=== PATIENT | male | born 1965 | race Caucasian/White ===

== ENCOUNTER 2017-01-23 23:44 | Observation (INO) | payer BC ==
[2017-01-24] MEDS ORDERED: Sodium Chloride 0.9% 1000 ML 1,000 ML IV STA (00:27)
[2017-01-24] MEDS ORDERED: PROTONIX 40 MG IV IV ONE ×2 (00:27→00:37)
[2017-01-24] MEDS ORDERED: Zofran 4 MG/2 ML VIAL IV ONE ×2 (00:27→03:14)
--- NOTE | 2017-01-24 00:33 | ERPHSYRPT ---
- History of Present Illness Time Seen by Provider: 01/23/17 23:56 Historian: patient Exam Limitations: clinical condition Patient Subjective Stated Complaint: PT STS LOWER ABD PAIN THAT STARTED EARLIER. DENIES ANY RECENT HEAVY LIFTING OR TRAUMA. DENIES N/V/D. STS PAIN RADIATES TO GROIN. DESCRIBES CONSTANT THAT WAXES AND WANES. STS LAST BM TODAY. DENIES CHANGE IN URINATION. STS URINE MORE YELLOW THAN NORMAL. Triage Nursing Assessment: PT ALERT, ORIENTED, ANSWERS ALL QUESTIONS APPROPRIATELY. SKIN P/W/D, RESPS NON-LABORED. LUNG SOUNDS CTA BILAT NON- LABORED. HEART RRR, NO MURMUR NOTED OR GALLOP NOTED. ABD SOFT, TENDER WITH PALPATION SUPRAPUBIC AREA. + BOWEL SOUNDS NOTED. Physician History: PATIENT WITH HISTORY OF HYPERTENSION COMPLAINS OF ABDOMINAL PAIN SINCE 3:30PM THIS AFTERNOON. STATES PAIN IS CONSTANT, DENIES DIARRHEA, NAUSEA, EMESIS, FEVER OR URINARY SYMPTOMS. Timing/Duration: today Activities at Onset: none Quality: cramping Abdominal Pain Onset Location: generalized abdomen Severity of Pain-Max: moderate Severity of Pain-Current: moderate Modifying Factors: Improves With: nothing Associated Symptoms: denies symptoms Previous symptoms: no prior history Allergies/Adverse Reactions: No Known Drug Allergies Allergy (Verified 01/23/17 23:54) Hx Influenza Vaccination/Date Given: No Hx Pneumococcal Vaccination/Date Given: No Immunizations Up to Date: Yes - Review of Systems Constitutional: No Fever, No Chills Eyes: No Symptoms Ears, Nose, & Throat: No Symptoms Respiratory: No Cough, No Dyspnea Cardiac: No Chest Pain, No Edema, No Syncope Abdominal/Gastrointestinal: Abdominal Pain, No Nausea, No Vomiting, No Diarrhea Genitourinary Symptoms: No Symptoms, No Dysuria Musculoskeletal: No Symptoms, No Back Pain, No Neck Pain Skin: No Symptoms, No Rash Neurological: No Dizziness, No Focal Weakness, No Sensory Changes Psychological: No Symptoms Endocrine: No Symptoms All Other Systems: Reviewed and Negative - Past Medical History Pertinent Past Medical History: Yes Cardiac History: Hypertension - Past Surgical History Past Surgical History: No - Social History Smoking Status: Never smoker Drug Use: none Patient Lives Alone: No - Nursing Vital Signs Nursing Vital Signs: Initial Vital Signs Temperature 99.5 F Temperature Source Oral Pulse Rate 84 Respiratory Rate 16 Blood Pressure [] 138/103 Pain Intensity 7 - Physical Exam General Appearance: no apparent distress, alert Eye Exam: PERRL/EOMI, eyes nml inspection Ears, Nose, Throat Exam: normal ENT inspection, pharynx normal, moist mucous membranes Neck Exam: normal inspection, non-tender, supple, full range of motion Respiratory Exam: normal breath sounds, lungs clear, No respiratory distress Cardiovascular Exam: regular rate/rhythm, normal heart sounds, normal peripheral pulses Gastrointestinal/Abdomen Exam: soft, normal bowel sounds, tenderness (THERE IS MINIMAL PERIUMBILICAL TENDERNESS), No mass Back Exam: normal inspection, normal range of motion, No CVA tenderness, No vertebral tenderness Extremity Exam: normal inspection, normal range of motion, pelvis stable Neurologic Exam: alert, oriented x 3, cooperative, normal mood/affect, nml cerebellar function, sensation nml, No motor deficits Skin Exam: normal color, warm, dry SpO2: 97 Oxygen Delivery: Room Air - CT Exams Abdomen/Pelvis CT Interpretation: Tele-radiologist Report (THERE IS THICKENING OF THE WALL OF THE SIGMOID COLON WITH SURROUNDING FLUID STRANDING AND HYPEREMIA C/W ACUTE SIGMOID DIVERTICULITIS) Ordered Tests: Active Orders 24 hr Category Date Time Status Admission/Status Order ROUTINE Care 01/24/17 03:22 Active Code Status Order ROUTINE Care 01/24/17 03:22 Active IV Care Q6H Care 01/24/17 03:22 Active IV Insertion STAT Care 01/24/17 00:27 Active Clear Liquid Diet 01/24/17 Breakfast Completed ABDOMEN AND PELVIS W CONTRAST [CT] Stat Exams 01/24/17 00:27 Taken AMYLASE Stat Lab 01/24/17 00:20 Completed BLOOD CULTURE Stat Lab 01/24/17 02:36 Ordered CBC W DIFF Stat Lab 01/24/17 00:20 Completed CMP Stat Lab 01/24/17 00:20 Completed LIPASE Stat Lab 01/24/17 00:20 Completed UA W/RFX UR CULTURE Stat Lab 01/24/17 00:27 Completed Pulse Oximetry CONTINUOUS RT 01/24/17 03:23 Active Transfer Order Routine Transfer 01/24/17 03:21 Ordered Medication Summary Generic Name Dose Route Start Last Admin Trade Name Freq PRN Reason Stop Dose Admin Acetaminophen 650 mg 01/24/17 03:22 Tylenol 325 Mg PO 02/23/17 03:21 Q4H PRN PRN PAIN AND/OR FEVER Levofloxacin/Dextrose 500 mg in 100 mls @ 100 mls/hr 01/24/17 02:42 01/24/17 03:01 Levofloxacin 500mg/100ml D5w IV 01/24/17 03:41 100 mls/hr STAT STA Administration Levofloxacin/Dextrose 500 mg in 100 mls @ 100 mls/hr 01/24/17 10:00 Levofloxacin 500mg/100ml D5w IV 02/23/17 09:59 Q24H10 SUSSY Metronidazole 500 mg in 100 mls @ 100 mls/hr 01/24/17 06:00 Flagyl 500 Mg Ivpb IV 02/23/17 05:59 Q6HT SUSSY Sodium Chloride 1,000 mls @ 100 mls/hr 01/24/17 03:30 Sodium Chloride 0.9% 1000 Ml IV 02/23/17 03:29 .Q10H SUSSY Ondansetron HCl 4 mg 01/24/17 03:22 Zofran 4 Mg/2 Ml Vial IV 02/23/17 03:21 Q6H PRN PRN NAUSEA/VOMITING Pantoprazole Sodium 40 mg 01/24/17 10:00 Protonix 40 Mg Iv IV 02/23/17 09:59 Q24H10 SUSSY Discontinued Medications Generic Name Dose Route Start Last Admin Trade Name Freq PRN Reason Stop Dose Admin Hydromorphone HCl 1 mg 01/24/17 03:14 01/24/17 03:20 Hydromorphone 1 Mg/Ml Ampule IV 01/24/17 03:15 1 mg STAT ONE Administration Hydromorphone HCl Confirm 01/24/17 03:19 Hydromorphone 1 Mg/Ml Ampule Administered 01/24/17 03:20 Dose 1 mg .ROUTE .STK-MED ONE Sodium Chloride 1,000 mls @ 999 mls/hr 01/24/17 00:27 01/24/17 00:40 Sodium Chloride 0.9% 1000 Ml IV 01/24/17 01:27 999 mls/hr .Q1H1M STA Administration Sodium Chloride Confirm 01/24/17 00:37 Sodium Chloride 0.9% 1000 Ml Administered 01/24/17 00:38 Dose 1,000 mls @ ud .ROUTE .STK-MED ONE Metronidazole 500 mg in 100 mls @ 200 mls/hr 01/24/17 02:42 01/24/17 03:01 Flagyl 500 Mg Ivpb IV 01/24/17 03:11 200 mls/hr STAT STA Administration Metronidazole Confirm 01/24/17 02:58 Flagyl 500 Mg Ivpb Administered 01/24/17 02:59 Dose 500 mg in 100 mls @ ud IV .STK-MED ONE Levofloxacin/Dextrose Confirm 01/24/17 02:58 Levofloxacin 500mg/100ml D5w Administered 01/24/17 02:59 Dose 500 mg in 100 mls @ ud IV .STK-MED ONE Ondansetron HCl 4 mg 01/24/17 00:27 01/24/17 00:40 Zofran 4 Mg/2 Ml Vial IV 01/24/17 00:28 4 mg STAT ONE Administration Ondansetron HCl Confirm 01/24/17 00:37 Zofran 4 Mg/2 Ml Vial Administered 01/24/17 00:38 Dose 4 mg .ROUTE .STK-MED ONE Ondansetron HCl 4 mg 01/24/17 03:14 01/24/17 03:20 Zofran 4 Mg/2 Ml Vial IV 01/24/17 03:15 4 mg STAT ONE Administration Ondansetron HCl Confirm 01/24/17 03:19 Zofran 4 Mg/2 Ml Vial Administered 01/24/17 03:20 Dose 4 mg .ROUTE .STK-MED ONE Pantoprazole Sodium 40 mg 01/24/17 00:27 01/24/17 00:40 Protonix 40 Mg Iv IV 01/24/17 00:28 40 mg STAT ONE Administration Pantoprazole Sodium Confirm 01/24/17 00:37 Protonix 40 Mg Iv Administered 01/24/17 00:38 Dose 40 mg IV .STK-MED ONE Lab/Rad Data: Laboratory Result Diagrams 01/24/17 00:20 01/24/17 00:20 Laboratory Results 01/24/17 01/24/17 01/24/17 Range/Units 00:27 00:20 00:20 WBC 12.3 H (4.0-10.5) K/mm3 RBC 5.10 (4.1-5.6) M/mm3 Hgb 15.3 (12.5-18.0) gm/dl Hct 45.6 (42-50) % MCV 89.4 (78-100) fl MCH 30.0 (26-32) pg MCHC 33.6 (32-36) g/dl RDW 12.5 (11.5-14.0) % Plt Count 267 (150-450) K/mm3 MPV 10.4 H (6-9.5) fl Gran % 72.8 H (36.0-66.0) % Lymphocytes % 14.9 L (24.0-44.0) % Monocytes % 10.4 (0.0-12.0) % Eosinophils % 1.5 (0.00-5.0) % Basophils % 0.4 (0.0-0.4) % Basophils # 0.05 (0-0.4) Sodium 139 (136-145) mEq/L Potassium 3.7 (3.5-5.1) mEq/L Chloride 104 (98-107) mEq/L Carbon Dioxide 27.1 (21-32) mEq/L Anion Gap 11.4 (5-15) MEQ/L BUN 8 L (9-20) mg/dL Creatinine 1.24 (0.55-1.30) mg/dl Estimated GFR > 60 ML/MIN Glucose 115 H (70-110) MG/DL Calcium 9.1 (8.5-10.1) mg/dL Total Bilirubin 0.70 (0.2-1.0) mg/dL AST 14 L (15-37) U/L ALT 17 (12-78) U/L Alkaline Phosphatase 55 (46-116) U/L Serum Total Protein 7.3 (6.4-8.2) gm/dL Albumin 3.7 (3.4-5.0) g/dL Amylase 51 (25-115) U/L Lipase 149 (73-393) U/L Ur Collection Type CCMS Urine Color YELLOW (YELLOW) Urine Appearance CLEAR (CLEAR) Urine pH 5.0 (5-6) Ur Specific [place] 1.030 (1.005-1.025) Urine Protein NEGATIVE (Negative) Urine Ketones NEGATIVE (NEGATIVE) Urine Blood NEGATIVE (0-5) Ryan/ul Urine Nitrite NEGATIVE (NEGATIVE) Urine Bilirubin NEGATIVE (NEGATIVE) Urine Urobilinogen NORMAL (0-1) mg/dL Ur Leukocyte Esterase NEGATIVE (NEGATIVE) Urine Glucose NEGATIVE (NEGATIVE) mg/dL Specimen Received 01/24/17 0050 - Progress Progress Note: 01/24/17 03:20 AFTER 2 SETS OF BLOOD CULTURES, IV LEVAQUIN 500MG AND FLAGYL 500MG IVPB Discussed with : Pedro (DISCUSSED WITH DR OSPINA AT 0315 FOR ADMISSION) - Departure Time of Disposition: 03:30 Departure Disposition: Observation Clinical Impression: ACUTE SIGMOID DIVERTICULITIS Condition: Stable Critical Care Time: No Referrals: BERNADETTE OSPINA MD [Primary Care Provider] -
[2017-01-24] MEDS ORDERED: Sodium Chloride 0.9% 1000 ML 1,000 ML ONE (00:37)
[2017-01-24] MEDS ORDERED: Zofran 4 MG/2 ML VIAL ONE ×2 (00:37→03:19)
[2017-01-24 00:39] LABS: BASOPHIL % 0.4 % (0.0-0.4); Eosinophil % 1.5 % (0.00-5.0); Granulocytes % 72.8 % (36.0-66.0); Lymphocytes % 14.9 % (24.0-44.0); Mean Cell Volume 89.4 fl (78-100); Mean Platelet Volume 10.4 fl (6-9.5); Monocytes % 10.4 % (0.0-12.0); Platelet Count 267 K/mm3 (150-450); Red Cell Distribution Width 12.5 % (11.5-14.0); White Blood Count 12.3 K/mm3 (4.0-10.5)
[2017-01-24 00:47] LABS: ALBUMIN 3.7 g/dL (3.4-5.0); ALKALINE PHOSPHATASE 55 U/L (46-116); ANION GAP 11.4 MEQ/L (5-15); BLOOD UREA NITROGEN 8 mg/dL (9-20); CHLORIDE 104 mEq/L (98-107); Carbon Dioxide 27.1 mEq/L (21-32); Glucose 115 MG/DL (70-110); LIPASE 149 U/L (73-393); Potassium 3.7 mEq/L (3.5-5.1); SGOT/AST 14 U/L (15-37); SGPT/ALT 17 U/L (12-78); SODIUM 139 mEq/L (136-145); Total Protein 7.3 gm/dL (6.4-8.2)
[2017-01-24 00:52] LABS: ADD URINE CULTURE? NO (NO); Bilirubin NEGATIVE (NEGATIVE); Blood NEGATIVE Ery/ul (0-5); COMPLETE URINE MICROSCOPIC? NO; Collection Type CCMS; Glucose NEGATIVE (NEGATIVE); Leukocyte Esterase NEGATIVE (NEGATIVE)
[2017-01-24] MEDS ORDERED: Levofloxacin 500MG/100ML D5W 500 MG/100 ML BAG IV STA (02:42)
[2017-01-24] MEDS ORDERED: FLAGYL 500 MG IVPB 500 MG/100 ML BAG IV STA (02:42)
[2017-01-24] MEDS ORDERED: Levofloxacin 500MG/100ML D5W 500 MG/100 ML BAG IV ONE (02:58)
[2017-01-24] MEDS ORDERED: FLAGYL 500 MG IVPB 500 MG/100 ML BAG IV ONE (02:58)
[2017-01-24] MEDS ORDERED: Hydromorphone 1 mg/ml Ampule IV ONE (03:14)
[2017-01-24] MEDS ORDERED: Hydromorphone 1 mg/ml Ampule ONE (03:19)
[2017-01-24] MEDS ORDERED: TYLENOL 325 MG PO PRN (03:22)
[2017-01-24] MEDS ORDERED: Zofran 4 MG/2 ML VIAL IV PRN (03:22)
[2017-01-24] MEDS: Sodium Chloride 0.9% 1000 ML 1,000 ML IV SCH ×2 (05:15→18:02)
[2017-01-24] MEDS: FLAGYL 500 MG IVPB 500 MG/100 ML BAG IV SCH ×4 (07:37→23:45)
--- NOTE | 2017-01-24 08:17 | PCM.HP ---
History of Present Illness - Chief Complaint Chief Complaint: c/o of left lower abdominal pain for 1-2 days History of Present Illness: is a 51 year old male.came to ER with c/o left lower quadrant abdominal pain for 1-2 days duration - Review of Systems Constitutional: No Fever, No Chills Eyes: No Symptoms Ears, Nose, & Throat: No Symptoms Respiratory: No Cough, No Short Of Breath Cardiac: No Chest Pain, No Edema, No Syncope Abdominal/Gastrointestinal: Abdominal Pain, Diarrhea, Appetite Changes, No Nausea, No Vomiting Genitourinary Symptoms: No Dysuria Musculoskeletal: No Back Pain, No Neck Pain Skin: No Rash Neurological: No Dizziness, No Focal Weakness, No Sensory Changes Psychological: No Symptoms Endocrine: No Symptoms Hematologic/Lymphatic: No Symptoms Immunological/Allergic: No Symptoms Medications & Allergies Home Medications: Home Medication List Enalapril Maleate 5 mg [Vasotec 5 MG] 5 mg PO DAILY #30 tablet 08/06/12 [Rx] Allergies/Adverse Reactions: Allergies Allergy/AdvReac Type Severity Reaction Status Date / Time No Known Drug Allergies Allergy Verified 01/23/17 23:54 - Past Medical History Past Medical History: Yes Neurological History: TIA ENT History: No Pertinent History Cardiac History: Hypertension, Myocardial Infarction (ME) Respiratory History: No Pertinent History Endocrine Medical History: No Pertinent History Musculoskelatal History: No Pertinent History GI Medical History: No Pertinent History History: No Pertinent History Pyscho-Social History: No Pertinent History Comment: mild ME over 10 years ago, slight stroke many years ago - Past Surgical History Past Surgical History: No - Social History Smoking Status: Never smoker Exposure to second hand smoke: No Alcohol: Occasionally Drug Use: none - Physical Exam Vital Signs: Vital Signs - 24 hr Temp Pulse Resp BP Pulse Ox 01/24/17 07:39 98.5 F 71 18 127/71 94 L 01/24/17 04:27 98.1 F 81 18 138/95 93 L 01/24/17 03:33 97 01/24/17 01:19 84 16 138/103 97 01/23/17 23:46 99.5 F 76 16 156/110 97 General Appearance: no apparent distress, alert Neurologic Exam: alert, oriented x 3, cooperative, normal mood/affect, nml cerebellar function, nml station & gait, sensation nml, No motor deficits Eye Exam: PERRL/EOMI, eyes nml inspection Ears, Nose, Throat Exam: normal ENT inspection, TMs normal, pharynx normal, moist mucous membranes Neck Exam: normal inspection, non-tender, supple, full range of motion Respiratory Exam: normal breath sounds, lungs clear, No respiratory distress Cardiovascular Exam: regular rate/rhythm, normal heart sounds, normal peripheral pulses Gastrointestinal/Abdomen Exam: soft, tenderness (left lower quadrant, groin), No mass Back Exam: normal inspection, normal range of motion, No CVA tenderness, No vertebral tenderness Extremity Exam: normal inspection, normal range of motion, pelvis stable Skin Exam: normal color, warm, dry, No rash Lymphatic Exam: No adenopathy Assessment/Plan (1) Sigmoid diverticulitis Current Visit: Yes Status: Acute Code(s): K57.32 - DVTRCLI OF LG INT W/O PERFORATION OR ABSCESS W/O BLEEDING
--- NOTE | 2017-01-24 08:44 | XRAY ---
Indication: Lower abdominal pain, nausea, and vomiting. Elevated WBC. Multiple contiguous axial images obtained through the abdomen and pelvis using 80 cc Isovue 370 contrast only. Comparison: None Lung bases demonstrates mild bibasilar dependent atelectasis. Heart is not enlarged. Small hiatal hernia. Noncontrasted stomach and bowel loops appear nonobstructed. Normal appendix. Scattered colonic diverticulosis greatest in the sigmoid where there is mild/moderate mid sigmoid diverticulitis. Tiny free fluid but no walled off fluid collection or free air. Tiny gallstones/gravel near the neck of the gallbladder. Scattered sub-centimeter hepatic cysts. Remaining liver, pancreas, spleen, adrenal glands, kidneys, ureters, bladder, and aorta appear unremarkable. Benign appearing chunky prostate calcifications. No pathologic retroperitoneal lymphadenopathy. Osseous structures intact with mild lower lumbar degenerative changes greatest at the lumbosacral junction. Impression: 1. Colonic diverticulosis with mid sigmoid diverticulitis. Tiny reactive free fluid but no walled off fluid collection or free air. 2. Incidental small hiatal hernia, hepatic cysts, and tiny gallstones/gravel. Comment: Preliminary interpretation was made by [facility]. Gallstones/gravel not reported and not a critical finding. CT DI 23.24
[2017-01-24] MEDS: Zestril 20 MG PO SCH (13:01)
[2017-01-24] MEDS: COREG 12.5 MG PO SCH ×2 (13:01→21:24)
[2017-01-24] MEDS ORDERED: Levofloxacin 500MG/100ML D5W 500 MG/100 ML BAG IV SCH (22:00)
[2017-01-24] MEDS ORDERED: PROTONIX 40 MG IV IV SCH (22:00)
[2017-01-25] MEDS: FLAGYL 500 MG IVPB 500 MG/100 ML BAG IV SCH ×2 (05:55→13:30)
[2017-01-25 10:35] LABS: Mean Cell Volume 91.2 fl (78-100); Mean Platelet Volume 10.1 fl (6-9.5); Platelet Count 213 K/mm3 (150-450); Red Blood Count 4.64 M/mm3 (4.1-5.6); Red Cell Distribution Width 12.5 % (11.5-14.0)
[2017-01-25] MEDS: Zestril 20 MG PO SCH (10:48)
[2017-01-25] MEDS: COREG 12.5 MG PO SCH (11:00)
[2017-01-25 11:05] LABS: ALKALINE PHOSPHATASE 42 U/L (46-116); ANION GAP 10.3 MEQ/L (5-15); BLOOD UREA NITROGEN 6 mg/dL (9-20); CHLORIDE 107 mEq/L (98-107); Carbon Dioxide 28.7 mEq/L (21-32); Glucose 105 MG/DL (70-110); Potassium 4.2 mEq/L (3.5-5.1); SGOT/AST 13 U/L (15-37); SODIUM 142 mEq/L (136-145); Total Protein 6.2 gm/dL (6.4-8.2)
[2017-01-25 11:22] LABS: SGPT/ALT 13 U/L (12-78)
--- NOTE | 2017-01-25 12:19 | PCM.DS ---
Discharge Summary Date of Admission: 01/24/17 04:02 Admitting Physician: BERNADETTE OSPINA Primary Care Provider: BERNADETTE OSPINA Allergies Allergies No Known Drug Allergies Allergy (Verified 01/23/17 23:54) Hospital Summary - Hospital Course Hospital Course: Chief Complaint Diagnosis c/o of left lower abdominal pain for 1-2 days Allergies Allergy/AdvReac Type Severity Reaction Status Date / Time No Known Drug Allergies Allergy Verified 01/23/17 23:54 Vital Signs (Last 24 hours) Temp Pulse Resp BP Pulse Ox 01/25/17 07:20 97.9 F 56 L 18 129/91 95 01/25/17 03:31 97.8 F 64 17 96/58 95 01/24/17 23:57 97.8 F 76 18 90/61 96 01/24/17 20:00 98.2 F 70 17 127/92 94 L 01/24/17 16:00 97.7 F 65 20 117/78 94 L Home Medications Medication Instructions Recorded Confirmed Last Taken Type Carvedilol 12.5 mg [Coreg 12.5 12.5 mg PO BID 01/24/17 01/24/17 01/23/17 History mg] Lisinopril 20 mg [Zestril 20 20 mg PO DAILY 01/24/17 01/24/17 01/23/17 History MG] Current Medications Generic Name Dose Route Start Last Admin Trade Name Freq PRN Reason Stop Dose Admin Acetaminophen 650 mg 01/24/17 03:22 Tylenol 325 Mg PO 02/23/17 03:21 Q4H PRN PRN PAIN AND/OR FEVER Carvedilol 12.5 mg 01/24/17 12:15 01/25/17 11:00 Coreg 12.5 Mg PO 02/23/17 12:14 Not Given BID SUSSY Levofloxacin/Dextrose 500 mg in 100 mls @ 100 mls/hr 01/24/17 22:00 01/24/17 21:27 Levofloxacin 500mg/100ml D5w IV 02/23/17 21:59 100 mls/hr Q24H22 SUSSY Administration Metronidazole 500 mg in 100 mls @ 100 mls/hr 01/24/17 06:00 01/25/17 05:55 Flagyl 500 Mg Ivpb IV 02/23/17 05:59 100 mls/hr Q6HT SUSSY Administration Sodium Chloride 1,000 mls @ 100 mls/hr 01/24/17 03:30 01/24/17 18:02 Sodium Chloride 0.9% 1000 Ml IV 02/23/17 03:29 100 mls/hr .Q10H SUSSY Administration Lisinopril 20 mg 01/24/17 12:15 01/25/17 10:48 Zestril 20 Mg PO 02/23/17 12:14 20 mg DAILY SUSSY Administration Ondansetron HCl 4 mg 01/24/17 03:22 Zofran 4 Mg/2 Ml Vial IV 02/23/17 03:21 Q6H PRN PRN NAUSEA/VOMITING Pantoprazole Sodium 40 mg 01/24/17 22:00 01/24/17 21:26 Protonix 40 Mg Iv IV 02/23/17 21:59 40 mg Q24H22 SUSSY Administration Discontinued Medications Generic Name Dose Route Start Last Admin Trade Name Freq PRN Reason Stop Dose Admin Hydromorphone HCl 1 mg 01/24/17 03:14 01/24/17 03:20 Hydromorphone 1 Mg/Ml Ampule IV 01/24/17 03:15 1 mg STAT ONE Administration Hydromorphone HCl Confirm 01/24/17 03:19 Hydromorphone 1 Mg/Ml Ampule Administered 01/24/17 03:20 Dose 1 mg .ROUTE .STK-MED ONE Sodium Chloride 1,000 mls @ 999 mls/hr 01/24/17 00:27 01/24/17 00:40 Sodium Chloride 0.9% 1000 Ml IV 01/24/17 01:27 999 mls/hr .Q1H1M STA Administration Sodium Chloride Confirm 01/24/17 00:37 Sodium Chloride 0.9% 1000 Ml Administered 01/24/17 00:38 Dose 1,000 mls @ ud .ROUTE .STK-MED ONE Metronidazole 500 mg in 100 mls @ 200 mls/hr 01/24/17 02:42 01/24/17 03:01 Flagyl 500 Mg Ivpb IV 01/24/17 03:11 200 mls/hr STAT STA Administration Levofloxacin/Dextrose 500 mg in 100 mls @ 100 mls/hr 01/24/17 02:42 01/24/17 03:01 Levofloxacin 500mg/100ml D5w IV 01/24/17 03:41 100 mls/hr STAT STA Administration Metronidazole Confirm 01/24/17 02:58 Flagyl 500 Mg Ivpb Administered 01/24/17 02:59 Dose 500 mg in 100 mls @ ud IV .STK-MED ONE Levofloxacin/Dextrose Confirm 01/24/17 02:58 Levofloxacin 500mg/100ml D5w Administered 01/24/17 02:59 Dose 500 mg in 100 mls @ ud IV .STK-MED ONE Ondansetron HCl 4 mg 01/24/17 00:27 01/24/17 00:40 Zofran 4 Mg/2 Ml Vial IV 01/24/17 00:28 4 mg STAT ONE Administration Ondansetron HCl Confirm 01/24/17 00:37 Zofran 4 Mg/2 Ml Vial Administered 01/24/17 00:38 Dose 4 mg .ROUTE .STK-MED ONE Ondansetron HCl 4 mg 01/24/17 03:14 01/24/17 03:20 Zofran 4 Mg/2 Ml Vial IV 01/24/17 03:15 4 mg STAT ONE Administration Ondansetron HCl Confirm 01/24/17 03:19 Zofran 4 Mg/2 Ml Vial Administered 01/24/17 03:20 Dose 4 mg .ROUTE .STK-MED ONE Pantoprazole Sodium 40 mg 01/24/17 00:27 01/24/17 00:40 Protonix 40 Mg Iv IV 01/24/17 00:28 40 mg STAT ONE Administration Pantoprazole Sodium Confirm 01/24/17 00:37 Protonix 40 Mg Iv Administered 01/24/17 00:38 Dose 40 mg IV .STK-MED ONE Intake & Output (Last 24 hours) 01/23/17 01/24/17 01/25/17 01/26/17 11:59 11:59 11:59 11:59 Intake Total 580 4184 Balance 580 4184 Weight 93.44 kg Microbiology Results (Last 24 hours) 01/24/17 03:30 Blood - Pending 01/24/17 03:30 Blood Blood Culture - Preliminary NO GROWTH TO DATE 01/24/17 00:28 Blood - Pending 01/24/17 00:28 Blood Blood Culture - Preliminary NO GROWTH TO DATE Laboratory Results (Last 24 hours) 01/25/17 01/25/17 10:20 10:20 WBC 7.0 RBC 4.64 Hgb 13.9 Hct 42.3 MCV 91.2 MCH 30.0 MCHC 32.9 RDW 12.5 Plt Count 213 MPV 10.1 H Sodium 142 Potassium 4.2 Chloride 107 Carbon Dioxide 28.7 Anion Gap 10.3 BUN 6 L Creatinine 1.16 Estimated GFR > 60 Glucose 105 Calcium 8.7 Total Bilirubin 0.80 AST 13 L ALT 13 Alkaline Phosphatase 42 L Serum Total Protein 6.2 L Albumin 3.0 L Orders (Last 24 hours) Category Date Time Status Full Liquid Diet Diet 01/24/17 Dinner Completed High Fiber Diet 01/25/17 Lunch Active CBC Urgent Lab 01/25/17 10:20 Completed CMP Urgent Lab 01/25/17 10:20 Completed Carvedilol 12.5 mg [Coreg 12.5 mg] Med 01/24/17 12:15 Active 12.5 mg PO BID Levofloxacin [Levofloxacin 500MG/100ML D5W] Med 01/24/17 22:00 Active 500 mg in 100 ml IV Q24H22 Lisinopril 20 mg [Zestril 20 MG] Med 01/24/17 12:15 Active 20 mg PO DAILY Pantoprazole 40 mg [Protonix 40 mg IV] Med 01/24/17 22:00 Active 40 mg IV Q24H22 - Vitals & Intake/Output Vital Signs: Vital Signs Temperature 97.9 F 01/25/17 07:20 Pulse Rate 56 L 01/25/17 07:20 Respiratory Rate 18 01/25/17 07:20 Blood Pressure 129/91 01/25/17 07:20 O2 Sat by Pulse Oximetry 95 01/25/17 07:20 Intake & Output: Intake & Output 01/23/17 01/24/17 01/25/17 01/26/17 11:59 11:59 11:59 11:59 Intake Total 580 4184 Balance 580 4184 Weight 93.44 kg - Lab Result Diagrams: 01/25/17 10:20 01/25/17 10:20 Lab Results-Last 24 Hrs: Lab Results-Last 24 Hours 01/25/17 01/25/17 Range/Units 10:20 10:20 WBC 7.0 (4.0-10.5) K/mm3 RBC 4.64 (4.1-5.6) M/mm3 Hgb 13.9 (12.5-18.0) gm/dl Hct 42.3 (42-50) % MCV 91.2 (78-100) fl MCH 30.0 (26-32) pg MCHC 32.9 (32-36) g/dl RDW 12.5 (11.5-14.0) % Plt Count 213 (150-450) K/mm3 MPV 10.1 H (6-9.5) fl Sodium 142 (136-145) mEq/L Potassium 4.2 (3.5-5.1) mEq/L Chloride 107 (98-107) mEq/L Carbon Dioxide 28.7 (21-32) mEq/L Anion Gap 10.3 (5-15) MEQ/L BUN 6 L (9-20) mg/dL Creatinine 1.16 (0.55-1.30) mg/dl Estimated GFR > 60 ML/MIN Glucose 105 (70-110) MG/DL Calcium 8.7 (8.5-10.1) mg/dL Total Bilirubin 0.80 (0.2-1.0) mg/dL AST 13 L (15-37) U/L ALT 13 (12-78) U/L Alkaline Phosphatase 42 L (46-116) U/L Serum Total Protein 6.2 L (6.4-8.2) gm/dL Albumin 3.0 L (3.4-5.0) g/dL Discharge Exam General Appearance: no apparent distress, alert Neurologic Exam: alert, oriented x 3, cooperative, normal mood/affect, nml cerebellar function, sensation nml, No motor deficits Skin Exam: normal color, warm, dry Eye Exam: PERRL, EOMI, eyes nml inspection Ears, Nose, Throat Exam: normal ENT inspection, pharynx normal, moist mucous membranes Neck Exam: normal inspection, non-tender, supple, full range of motion Respiratory Exam: normal breath sounds, lungs clear, No respiratory distress Cardiovascular Exam: regular rate/rhythm, normal heart sounds Gastrointestinal/Abdomen Exam: soft, No tenderness, No mass Extremity Exam: normal inspection, normal range of motion Back Exam: normal inspection, normal range of motion, No CVA tenderness, No vertebral tenderness Male Genitalia Exam: deferred Rectal Exam: deferred Final Diagnosis/Problem List - Final Discharge Diagnosis/Problem (1) Sigmoid diverticulitis Current Visit: Yes Status: Acute Assessment & Plan: Last Vital Signs Temp 97.9 F 01/25/17 07:20 Pulse 56 L 01/25/17 07:20 Resp 18 01/25/17 07:20 BP 129/91 01/25/17 07:20 Pulse Ox 95 01/25/17 07:20 Allergies No Known Drug Allergies Allergy (Verified 01/23/17 23:54) Active Medications Acetaminophen (Tylenol 325 Mg) 650 mg PO Q4H PRN PRN PRN Reason: PAIN AND/OR FEVER Stop: 02/23/17 03:21 Carvedilol (Coreg 12.5 Mg) 12.5 mg PO BID [facility] Stop: 02/23/17 12:14 Last Admin: 01/25/17 11:00 Dose: Not Given Levofloxacin/Dextrose (Levofloxacin 500mg/100ml D5w) 500 mg in 100 mls @ 100 mls/hr IV Q24H22 [facility] Stop: 02/23/17 21:59 Last Admin: 01/24/17 21:27 Dose: 100 mls/hr Metronidazole (Flagyl 500 Mg Ivpb) 500 mg in 100 mls @ 100 mls/hr IV Q6HT SUSSY Stop: 02/23/17 05:59 Last Admin: 01/25/17 05:55 Dose: 100 mls/hr Sodium Chloride (Sodium Chloride 0.9% 1000 Ml) 1,000 mls @ 100 mls/hr IV .Q10H [facility] Stop: 02/23/17 03:29 Last Admin: 01/24/17 18:02 Dose: 100 mls/hr Lisinopril (Zestril 20 Mg) 20 mg PO DAILY [facility] Stop: 02/23/17 12:14 Last Admin: 01/25/17 10:48 Dose: 20 mg Ondansetron HCl (Zofran 4 Mg/2 Ml Vial) 4 mg IV Q6H PRN PRN PRN Reason: NAUSEA/VOMITING Stop: 02/23/17 03:21 Pantoprazole Sodium (Protonix 40 Mg Iv) 40 mg IV Q24H22 SUSSY Stop: 02/23/17 21:59 Last Admin: 01/24/17 21:26 Dose: 40 mg Intake & Output 01/25/17 01/26/17 11:59 11:59 Intake Total 4184 Balance 4184 Orders 01/24/17 12:15 Carvedilol 12.5 mg [Coreg 12.5 mg] 12.5 mg PO BID Lisinopril 20 mg [Zestril 20 MG] 20 mg PO DAILY 01/25/17 Lunch High Fiber Lab Tests 01/25/17 01/25/17 10:20 10:20 WBC 7.0 RBC 4.64 Hgb 13.9 Hct 42.3 MCV 91.2 MCH 30.0 MCHC 32.9 RDW 12.5 Plt Count 213 MPV 10.1 H Sodium 142 Potassium 4.2 Chloride 107 Carbon Dioxide 28.7 Anion Gap 10.3 BUN 6 L Creatinine 1.16 Estimated GFR > 60 Glucose 105 Calcium 8.7 Total Bilirubin 0.80 AST 13 L ALT 13 Alkaline Phosphatase 42 L Serum Total Protein 6.2 L Albumin 3.0 L Microbiology 01/24/17 03:30 Blood Blood Culture - Preliminary NO GROWTH TO DATE 01/24/17 00:28 Blood Blood Culture - Preliminary NO GROWTH TO DATE Chief Complaint Diagnosis c/o of left lower abdominal pain for 1-2 days Allergies Allergy/AdvReac Type Severity Reaction Status Date / Time No Known Drug Allergies Allergy Verified 01/23/17 23:54 Vital Signs (Last 24 hours) Temp Pulse Resp BP Pulse Ox 01/25/17 07:20 97.9 F 56 L 18 129/91 95 01/25/17 03:31 97.8 F 64 17 96/58 95 01/24/17 23:57 97.8 F 76 18 90/61 96 01/24/17 20:00 98.2 F 70 17 127/92 94 L 01/24/17 16:00 97.7 F 65 20 117/78 94 L Home Medications Medication Instructions Recorded Confirmed Last Taken Type Carvedilol 12.5 mg [Coreg 12.5 12.5 mg PO BID 01/24/17 01/24/17 01/23/17 History mg] Lisinopril 20 mg [Zestril 20 20 mg PO DAILY 01/24/17 01/24/17 01/23/17 History MG] Current Medications Generic Name Dose Route Start Last Admin Trade Name Stanton PRN Reason Stop Dose Admin Acetaminophen 650 mg 01/24/17 03:22 Tylenol 325 Mg PO 02/23/17 03:21 Q4H PRN PRN PAIN AND/OR FEVER Carvedilol 12.5 mg 01/24/17 12:15 01/25/17 11:00 Coreg 12.5 Mg PO 02/23/17 12:14 Not Given BID SUSSY Levofloxacin/Dextrose 500 mg in 100 mls @ 100 mls/hr 01/24/17 22:00 01/24/17 21:27 Levofloxacin 500mg/100ml D5w IV 02/23/17 21:59 100 mls/hr Q24H22 SUSSY Administration Metronidazole 500 mg in 100 mls @ 100 mls/hr 01/24/17 06:00 01/25/17 05:55 Flagyl 500 Mg Ivpb IV 02/23/17 05:59 100 mls/hr Q6HT SUSSY Administration Sodium Chloride 1,000 mls @ 100 mls/hr 01/24/17 03:30 01/24/17 18:02 Sodium Chloride 0.9% 1000 Ml IV 02/23/17 03:29 100 mls/hr .Q10H SUSSY Administration Lisinopril 20 mg 01/24/17 12:15 01/25/17 10:48 Zestril 20 Mg PO 02/23/17 12:14 20 mg DAILY SUSSY Administration Ondansetron HCl 4 mg 01/24/17 03:22 Zofran 4 Mg/2 Ml Vial IV 02/23/17 03:21 Q6H PRN PRN NAUSEA/VOMITING Pantoprazole Sodium 40 mg 01/24/17 22:00 01/24/17 21:26 Protonix 40 Mg Iv IV 02/23/17 21:59 40 mg Q24H22 SUSSY Administration Discontinued Medications Generic Name Dose Route Start Last Admin Trade Name Stanton PRN Reason Stop Dose Admin Hydromorphone HCl 1 mg 01/24/17 03:14 01/24/17 03:20 Hydromorphone 1 Mg/Ml Ampule IV 01/24/17 03:15 1 mg STAT ONE Administration Hydromorphone HCl Confirm 01/24/17 03:19 Hydromorphone 1 Mg/Ml Ampule Administered 01/24/17 03:20 Dose 1 mg .ROUTE .STK-MED ONE Sodium Chloride 1,000 mls @ 999 mls/hr 01/24/17 00:27 01/24/17 00:40 Sodium Chloride 0.9% 1000 Ml IV 01/24/17 01:27 999 mls/hr .Q1H1M STA Administration Sodium Chloride Confirm 01/24/17 00:37 Sodium Chloride 0.9% 1000 Ml Administered 01/24/17 00:38 Dose 1,000 mls @ ud .ROUTE .STK-MED ONE Metronidazole 500 mg in 100 mls @ 200 mls/hr 01/24/17 02:42 01/24/17 03:01 Flagyl 500 Mg Ivpb IV 01/24/17 03:11 200 mls/hr STAT STA Administration Levofloxacin/Dextrose 500 mg in 100 mls @ 100 mls/hr 01/24/17 02:42 01/24/17 03:01 Levofloxacin 500mg/100ml D5w IV 01/24/17 03:41 100 mls/hr STAT STA Administration Metronidazole Confirm 01/24/17 02:58 Flagyl 500 Mg Ivpb Administered 01/24/17 02:59 Dose 500 mg in 100 mls @ ud IV .STK-MED ONE Levofloxacin/Dextrose Confirm 01/24/17 02:58 Levofloxacin 500mg/100ml D5w Administered 01/24/17 02:59 Dose 500 mg in 100 mls @ ud IV .STK-MED ONE Ondansetron HCl 4 mg 01/24/17 00:27 01/24/17 00:40 Zofran 4 Mg/2 Ml Vial IV 01/24/17 00:28 4 mg STAT ONE Administration Ondansetron HCl Confirm 01/24/17 00:37 Zofran 4 Mg/2 Ml Vial Administered 01/24/17 00:38 Dose 4 mg .ROUTE .STK-MED ONE Ondansetron HCl 4 mg 01/24/17 03:14 01/24/17 03:20 Zofran 4 Mg/2 Ml Vial IV 01/24/17 03:15 4 mg STAT ONE Administration Ondansetron HCl Confirm 01/24/17 03:19 Zofran 4 Mg/2 Ml Vial Administered 01/24/17 03:20 Dose 4 mg .ROUTE .STK-MED ONE Pantoprazole Sodium 40 mg 01/24/17 00:27 01/24/17 00:40 Protonix 40 Mg Iv IV 01/24/17 00:28 40 mg STAT ONE Administration Pantoprazole Sodium Confirm 01/24/17 00:37 Protonix 40 Mg Iv Administered 01/24/17 00:38 Dose 40 mg IV .STK-MED ONE Intake & Output (Last 24 hours) 01/23/17 01/24/17 01/25/17 01/26/17 11:59 11:59 11:59 11:59 Intake Total 580 4184 Balance 580 4184 Weight 93.44 kg Microbiology Results (Last 24 hours) 01/24/17 03:30 Blood - Pending 01/24/17 03:30 Blood Blood Culture - Preliminary NO GROWTH TO DATE 01/24/17 00:28 Blood - Pending 01/24/17 00:28 Blood Blood Culture - Preliminary NO GROWTH TO DATE Laboratory Results (Last 24 hours) 01/25/17 01/25/17 10:20 10:20 WBC 7.0 RBC 4.64 Hgb 13.9 Hct 42.3 MCV 91.2 MCH 30.0 MCHC 32.9 RDW 12.5 Plt Count 213 MPV 10.1 H Sodium 142 Potassium 4.2 Chloride 107 Carbon Dioxide 28.7 Anion Gap 10.3 BUN 6 L Creatinine 1.16 Estimated GFR > 60 Glucose 105 Calcium 8.7 Total Bilirubin 0.80 AST 13 L ALT 13 Alkaline Phosphatase 42 L Serum Total Protein 6.2 L Albumin 3.0 L Orders (Last 24 hours) Category Date Time Status Full Liquid Diet Diet 01/24/17 Dinner Completed High Fiber Diet 01/25/17 Lunch Active CBC Urgent Lab 01/25/17 10:20 Completed CMP Urgent Lab 01/25/17 10:20 Completed Carvedilol 12.5 mg [Coreg 12.5 mg] Med 01/24/17 12:15 Active 12.5 mg PO BID Levofloxacin [Levofloxacin 500MG/100ML D5W] Med 01/24/17 22:00 Active 500 mg in 100 ml IV Q24H22 Lisinopril 20 mg [Zestril 20 MG] Med 01/24/17 12:15 Active 20 mg PO DAILY Pantoprazole 40 mg [Protonix 40 mg IV] Med 01/24/17 22:00 Active 40 mg IV Q24H22 - Discharge Discharge Date: 01/25/17 Disposition: Home, Self-Care Condition: Stable Prescriptions: New Levofloxacin [Levaquin] 500 mg PO DAILY #7 tablet Continue Lisinopril 20 mg [Zestril 20 MG] 20 mg PO DAILY Carvedilol 12.5 mg [Coreg 12.5 mg] 12.5 mg PO BID Follow up with: BERNADETTE OSPINA MD [Primary Care Provider] - Forms: Patient Portal Information
[2017-01-25 13:53] VITALS: BP 148/94; PULSE 68; O2SAT 96
== END 2017-01-25 13:55 | disposition home or self-care (01) ==
LOC: ED 23:44 → MED SURG 01-24 04:02
PROVIDERS: ADMIT General Practice; ATTEND General Practice
DX: K57.30 Diverticulosis of large intestine without perforation or abscess without bleeding (principal); I10 Essential (primary) hypertension; I25.2 Old myocardial infarction
CPT/HCPCS: 36000; 36415; 74177; 80053; 81002; 82150; 83690; 85025; 85027; 87040; 93268; 96360; 96365; 96374; 96375; 96376; 99285; G0378; J1170; J1956; J2405; A9270-GY

== ENCOUNTER 2017-06-19 08:03 | Day surgery (SDC) | payer BC ==
--- NOTE | 2017-06-19 07:54 | HP ---
DATE OF SURGERY: 06/19/2017 HISTORY OF PRESENT ILLNESS: The patient is a 52 year-old with no prior colonoscopy who over the summer had diverticulitis episode. No bloody stools. No change in bowel movements. Family history of colon cancer. The patient is in need of screening colonoscopy. PAST MEDICAL HISTORY: Hypertension. PAST SURGICAL HISTORY: He denies any surgeries. MEDICATIONS: Blood pressure medication the name of which he did not know. ALLERGIES: NKDA. FAMILY HISTORY: Negative. SOCIAL HISTORY: He chews tobacco. He denies alcohol abuse. REVIEW OF SYSTEMS: Twelve systems reviewed. No chest pain or palpitations other systems negative or noncontributory as above and per preadmission questionnaire. PHYSICAL EXAMINATION: GENERAL: No acute distress. HEENT: Sclerae nonicteric. NECK: No JVD. CHEST: Equal excursion, nonlabored breathing. CVS: Regular rate and rhythm. ABDOMEN: Soft. No peritoneal signs. EXTREMITIES: No significant edema. NEURO: Alert, oriented, moving extremities symmetrically. No gross motor deficits noted. IMPRESSION: Need for screening colonoscopy. I feel the patient is a candidate. Risks and benefits explained in detail including but not limited to bleeding or infection, small risk of bowel injury or perforation possibly requiring open procedure, small risk of missed or nondiagnosis or incomplete exam possibly requiring barium enema, other studies or procedures, general risk of anesthesia or sedation but not limited to. He understands and agrees to the planned procedure and will proceed with outpatient colonoscopy.
[~2017-06-19 08:03] MED LIST: Lactated Ringers 1,000 ML IV ONE; Lactated Ringers 1,000 ML IV SCH
[2017-06-19] MEDS ORDERED: DIPRIVAN 200 MG/20 ML IV ONE (08:04)
[2017-06-19] MEDS ORDERED: Ketamine HCl 50 MG/ML IV ONE (08:04)
[2017-06-19] MEDS ORDERED: Lactated Ringers 1,000 ML IV ONE (10:22)
[2017-06-19 15:08] VITALS: BP 164/99; PULSE 50; O2SAT 100
--- NOTE | 2017-06-19 15:16 | OP ---
SURGERY DATE/TIME: 06/19/2017 1340 PREOPERATIVE DIAGNOSIS: Need for screening colonoscopy. POSTOPERATIVE DIAGNOSES: 1) Small polyp transverse colon. 2) Small discolored area rectum. 3) Small internal and external hemorrhoids. 4) Mild diverticulosis. 5) Tortuous colon with some poor bowel prep. PROCEDURES: 1) Colonoscopy to cecum with hot snare polypectomy, small transverse colon polyp. 2) Hot biopsy and removal of small discolored area versus hyperplastic lesion versus early polyp rectum. SURGEON: Dr. Alessandro Parson. ANESTHESIA: MAC. ESTIMATED BLOOD LOSS: Minimal. INDICATIONS: As noted above. Risks and benefits explained in detail but not limited to and consent obtained. DESCRIPTION OF PROCEDURE AND FINDINGS: The patient is taken to the endoscopy room. MAC anesthesia introduced. After official time out and no disagreement with planned procedure, digital rectal exam did not reveal any rectal masses. He did have some internal and external hemorrhoids. Video colonoscope inserted and passed up through the somewhat poorly prepped colon with several areas of liquidy semi-solid and a few areas of solid stool this is suction irrigated out as well as possible but did limit the exam for small lesions in transverse colon. With external pressure in a couple different locations the scope was able to be passed down the right lower quadrant, appendiceal orifice and valve were well visualized. Again the prep was somewhat poor with liquid semi-solid and solid stool throughout the colon limiting the exam for small lesions this was suction irrigated as well as possible but did limit the exam. The scope was slowly and carefully withdrawn. There was a pedunculated polyp on a stalk in the transverse colon, this was a small polyp on a long anal stalk this was removed with hot snare polypectomy with brief bursts of cautery. Good hemostasis is noted. The staff did say it was retrieved in the polyp trap. The scope was then slowly and carefully withdrawn. He had some diverticulosis in left colon. A few little solid stool balls limited the exam for small lesions. The scope is slowly and carefully withdrawn. Back to the rectum where he had some small internal and external hemorrhoids there was a little slightly brownish colored lesion whether this is an early hyperplastic lesion versus prep irritation versus other etiology is unclear. It was removed with hot biopsy forceps with brief bursts of cautery. Good hemostasis noted. The scope is withdrawn. The patient tolerated the procedure well. Findings discussed with the family or friend out in the waiting area.
== END 2017-06-19 16:12 | disposition home or self-care (01) ==
LOC: SDC 08:03
PROVIDERS: ATTEND Surgery
PROC: 0DBL8ZX Excision of Transverse Colon, Via Natural or Artificial Opening Endoscopic, Diagnostic (ICD-10-PCS; principal; 2017-06-19)
PROC: 0DBP8ZX Excision of Rectum, Via Natural or Artificial Opening Endoscopic, Diagnostic (ICD-10-PCS; 2017-06-19)
DX: K64.8 Other hemorrhoids (principal); K57.90 Diverticulosis of intestine, part unspecified, without perforation or abscess without bleeding; Q43.8 Other specified congenital malformations of intestine; I10 Essential (primary) hypertension
CPT/HCPCS: 00810; J2704